=== PATIENT | female | born 1940 | race Caucasian/White ===

== ENCOUNTER 2020-09-03 19:59 | Inpatient (IN) | payer OTHER ==
[2020-09-03] MEDS ORDERED: LACTATED RINGERS SOLUTION 1000 ML INFUS.BAG IV ONE (20:32)
[2020-09-03 21:27] LABS: VENOUS BASE EXCESS -5.7 mmol/L (-2-2); VENOUS O2 SATURATION 30.2 % (70-80); VENOUS PCO2 33.5 mmHg (38-52); VENOUS PH 7.364 (7.310-7.410)
[2020-09-03 21:28] LABS: BASO % 0.3 % (0-2.0); HEMATOCRIT 39.2 % (32.4-45.2); HEMOGLOBIN 12.8 GM/dL (10.7-15.3); LYMPH % 4.5 % (8-40); MCH 27.9 pg (25.7-33.7); MCHC 32.7 g/dl (32.0-36.0); MEAN CELL VOLUME 85.2 fl (80-96); MEAN PLT VOLUME 9.7 fl (7.5-11.1); MONO % 4.4 % (3.8-10.2); NEUT % 90.8 % (42.8-82.8); PLATELET COUNT 376 K/MM3 (134-434); RDW 14.3 % (11.6-15.6); WHITE BLOOD COUNT 23.1 K/mm3 (4.0-10.0)
[2020-09-03 21:44] LABS: INR 1.14 (0.83-1.09); PROTHROMBIN TIME (PATIENT) 13.7 SEC (9.7-13.0)
[2020-09-03 21:47] LABS: ACTIVATED PTT 24.7 SECONDS (25.2-36.5)
[2020-09-03 21:49] LABS: POTASSIUM 4.3 mmol/L (3.5-5.1)
[2020-09-03 21:52] LABS: ALBUMIN 3.4 g/dl (3.4-5.0); BLOOD UREA NITROGEN 15.2 mg/dL (7-18); CALCIUM 9.9 mg/dL (8.5-10.1); MAGNESIUM 1.6 mg/dL (1.8-2.4)
[2020-09-03] MEDS ORDERED: MAGNESIUM SULF 50% (8.12 MEQ/2 ML-1 GM VIAL) IVPB ONE (21:52)
[2020-09-03 21:54] LABS: CREATININE 1.2 mg/dL (0.55-1.3)
[2020-09-03 21:57] LABS: BILIRUBIN,TOTAL 0.9 mg/dL (0.2-1); TOT PROT 7.5 g/dl (6.4-8.2)
[2020-09-03] MEDS ORDERED: CEFTRIAXONE 1 GM in DEXTROSE 5%-WATER - 100 ML IVPB ONE (22:41)
[2020-09-03] MEDS ORDERED: CEFTRIAXONE 1 GM/50 ML BAG ONE (22:47)
[2020-09-03] MEDS ORDERED: MAGNESIUM 1GM/D5W - 1 GM/100 ML IVPB IVPB ONE (22:48)
[2020-09-03 23:03] LABS: ANISOCYTOSIS 0; MACROCYTOSIS 0; PLATELET ESTIMATE NORMAL
[2020-09-03 23:38] LABS: URINE APPEARANCE Clear; URINE BILIRUBIN 1+ (NEGATIVE); URINE COLOR Yellow; URINE GLUCOSE (UA) Negative (NEGATIVE); URINE KETONE 2+ (NEGATIVE); URINE LEUK ESTERASE Negative (NEGATIVE); URINE NITRITE Negative (NEGATIVE); URINE PROTEIN 2+ (NEGATIVE); URINE UROBILINOGEN 0.2 mg/dL (0.2-1.0)
[2020-09-04] MEDS ORDERED: ASPIRIN 325 MG TABLET PO ONE (00:55)
[2020-09-04] MEDS ORDERED: LACTATED RINGERS SOLUTION 1000 ML INFUS.BAG IV ONE (01:06)
[2020-09-04] MEDS ORDERED: SODIUM CHLORIDE 1,000 ML IV SCH (02:00)
[2020-09-04] MEDS: INSULIN SLIDING SCALE (NOVOLOG) 1 VIAL SQ SCH ×4 (07:33→22:06)
[2020-09-04] MEDS ORDERED: ENOXAPARIN NA (PORCINE) 40 MG/0.4 ML DISP.SYRIN SQ ONE (08:58)
[2020-09-04] MEDS: ENOXAPARIN NA (PORCINE) 40 MG/0.4 ML DISP.SYRIN SQ SCH (09:02)
[2020-09-04 09:41] LABS: HEMATOCRIT 35.9 % (32.4-45.2); MCHC 33.4 g/dl (32.0-36.0); MEAN CELL VOLUME 83.6 fl (80-96); MEAN PLT VOLUME 9.6 fl (7.5-11.1); PLATELET COUNT 354 K/MM3 (134-434); RDW 14.3 % (11.6-15.6); WHITE BLOOD COUNT 18.9 K/mm3 (4.0-10.0)
[2020-09-04 10:07] LABS: BLOOD UREA NITROGEN 15.2 mg/dL (7-18); CALCIUM 9.3 mg/dL (8.5-10.1)
[2020-09-04 10:11] LABS: CREATININE 1.1 mg/dL (0.55-1.3)
[2020-09-04] MEDS ORDERED: CEFTRIAXONE 1 GM/50 ML BAG ONE (14:27)
[2020-09-04] MEDS: CEFTRIAXONE 1 GM in DEXTROSE 5%-WATER - 50 ML IVPB SCH (14:29)
[2020-09-04] MEDS: SODIUM CHLORIDE 0.45%/POT 20 MEQ/1,000 ML INFUS.BAG IV SCH (14:44)
[2020-09-05] MEDS: SODIUM CHLORIDE 0.45%/POT 20 MEQ/1,000 ML INFUS.BAG IV SCH ×2 (06:36→14:15)
[2020-09-05] MEDS: INSULIN SLIDING SCALE (NOVOLOG) 1 VIAL SQ SCH ×4 (06:49→22:00)
[2020-09-05 08:17] LABS: BASO % 0.4 % (0-2.0); EOS % 2.3 % (0-4.5); HEMATOCRIT 31.8 % (32.4-45.2); HEMOGLOBIN 10.9 GM/dL (10.7-15.3); LYMPH % 26.5 % (8-40); MCH 28.7 pg (25.7-33.7); MCHC 34.4 g/dl (32.0-36.0); MEAN CELL VOLUME 83.5 fl (80-96); MEAN PLT VOLUME 9.3 fl (7.5-11.1); MONO % 7.5 % (3.8-10.2); NEUT % 63.3 % (42.8-82.8); PLATELET COUNT 296 K/MM3 (134-434); RBC 3.81 M/mm3 (3.60-5.2); RDW 14.3 % (11.6-15.6); WHITE BLOOD COUNT 11.8 K/mm3 (4.0-10.0)
[2020-09-05 08:39] LABS: POTASSIUM 4.1 mmol/L (3.5-5.1)
[2020-09-05 08:47] LABS: BLOOD UREA NITROGEN 15.6 mg/dL (7-18); CALCIUM 8.8 mg/dL (8.5-10.1)
[2020-09-05 08:48] LABS: ALBUMIN 2.6 g/dl (3.4-5.0)
[2020-09-05 08:50] LABS: BILIRUBIN,TOTAL 0.6 mg/dL (0.2-1); TOT PROT 5.9 g/dl (6.4-8.2)
[2020-09-05] MEDS ORDERED: DEXTROSE 5%-WATER - 50 ML IVPB ONE (10:42)
[2020-09-05] MEDS ORDERED: cefTRIAXone SODIUM 1 GM VIAL ONE (10:42)
[2020-09-05] MEDS: CEFTRIAXONE 1 GM in DEXTROSE 5%-WATER - 50 ML IVPB SCH (10:44)
[2020-09-05] MEDS: ENOXAPARIN NA (PORCINE) 40 MG/0.4 ML DISP.SYRIN SQ SCH (10:44)
[2020-09-06] MEDS: INSULIN SLIDING SCALE (NOVOLOG) 1 VIAL SQ SCH ×5 (06:49→22:19)
[2020-09-06 08:52] LABS: BASO % 0.9 % (0-2.0); EOS % 1.8 % (0-4.5); HEMATOCRIT 30.6 % (32.4-45.2); HEMOGLOBIN 10.5 GM/dL (10.7-15.3); LYMPH % 17.8 % (8-40); MCH 28.9 pg (25.7-33.7); MCHC 34.4 g/dl (32.0-36.0); MEAN PLT VOLUME 9.9 fl (7.5-11.1); MONO % 9.1 % (3.8-10.2); NEUT % 70.4 % (42.8-82.8); PLATELET COUNT 252 K/MM3 (134-434); RBC 3.64 M/mm3 (3.60-5.2); RDW 14.2 % (11.6-15.6); WHITE BLOOD COUNT 10.8 K/mm3 (4.0-10.0)
[2020-09-06 09:03] LABS: POTASSIUM 4.1 mmol/L (3.5-5.1)
[2020-09-06 09:20] LABS: CALCIUM 8.8 mg/dL (8.5-10.1)
[2020-09-06 09:22] LABS: ALBUMIN 2.5 g/dl (3.4-5.0); BLOOD UREA NITROGEN 12.1 mg/dL (7-18)
[2020-09-06 09:24] LABS: CREATININE 0.8 mg/dL (0.55-1.3)
[2020-09-06 09:25] LABS: BILIRUBIN,TOTAL 0.7 mg/dL (0.2-1)
[2020-09-06 09:26] LABS: TOT PROT 5.8 g/dl (6.4-8.2)
[2020-09-06] MEDS ORDERED: DEXTROSE 5%-WATER - 50 ML IVPB ONE (09:32)
[2020-09-06] MEDS ORDERED: cefTRIAXone SODIUM 1 GM VIAL ONE (09:32)
[2020-09-06] MEDS: ENOXAPARIN NA (PORCINE) 40 MG/0.4 ML DISP.SYRIN SQ SCH (09:42)
[2020-09-06] MEDS: CEFTRIAXONE 1 GM in DEXTROSE 5%-WATER - 50 ML IVPB SCH (09:42)
[2020-09-06 14:02] VITALS: BMI 25.8
[2020-09-06] MEDS: SODIUM CHLORIDE 0.45%/POT 20 MEQ/1,000 ML INFUS.BAG IV SCH (14:15)
[2020-09-06 14:56] LABS: EPI CELLS 6 /uL (0-25.1); HYALINE CASTS 1 /uL (0-3.1); URINE APPEARANCE CLEAR; URINE BACTERIA 35 /uL (0-1359); URINE BILIRUBIN NEGATIVE (NEGATIVE); URINE COLOR YELLOW; URINE GLUCOSE (UA) NEGATIVE (NEGATIVE); URINE KETONE NEGATIVE (NEGATIVE); URINE LEUK ESTERASE TRACE (NEGATIVE); URINE NITRITE NEGATIVE (NEGATIVE); URINE PROTEIN NEGATIVE (NEGATIVE); URINE RBC 19 /uL (0-23.9); URINE UROBILINOGEN 0.2 mg/dL (0.2-1.0); URINE WBC 59 /uL (0-25.8)
[2020-09-06] MEDS: AMINO ACIDS/PROTEIN HYDROLYS 30 ML LIQUID.PKT PO SCH (17:02)
[2020-09-06 18:12] LABS: YEAST PRESENT (NEGATIVE)
[2020-09-07] MEDS: SODIUM CHLORIDE 0.45%/POT 20 MEQ/1,000 ML INFUS.BAG IV SCH (04:00)
[2020-09-07] MEDS: INSULIN SLIDING SCALE (NOVOLOG) 1 VIAL SQ SCH ×4 (06:11→23:02)
[2020-09-07 07:39] LABS: HEMOGLOBIN 11.5 GM/dL (10.7-15.3); MCH 28.3 pg (25.7-33.7); MCHC 33.7 g/dl (32.0-36.0); MEAN CELL VOLUME 83.9 fl (80-96); MEAN PLT VOLUME 9.4 fl (7.5-11.1); PLATELET COUNT 274 K/MM3 (134-434); RBC 4.05 M/mm3 (3.60-5.2); RDW 14.5 % (11.6-15.6); WHITE BLOOD COUNT 11.1 K/mm3 (4.0-10.0)
[2020-09-07 07:54] LABS: POTASSIUM 4.4 mmol/L (3.5-5.1)
[2020-09-07 07:56] LABS: CALCIUM 8.8 mg/dL (8.5-10.1)
[2020-09-07 07:57] LABS: ALBUMIN 2.3 g/dl (3.4-5.0); BLOOD UREA NITROGEN 12.7 mg/dL (7-18)
[2020-09-07 08:00] LABS: CREATININE 0.8 mg/dL (0.55-1.3)
[2020-09-07 08:01] LABS: BILIRUBIN,TOTAL 0.6 mg/dL (0.2-1); TOT PROT 5.7 g/dl (6.4-8.2)
[2020-09-07] MEDS ORDERED: DEXTROSE 5%-WATER - 50 ML IVPB ONE (09:46)
[2020-09-07] MEDS ORDERED: cefTRIAXone SODIUM 1 GM VIAL ONE (09:46)
[2020-09-07] MEDS: ENOXAPARIN NA (PORCINE) 40 MG/0.4 ML DISP.SYRIN SQ SCH (11:07)
[2020-09-07] MEDS: AMINO ACIDS/PROTEIN HYDROLYS 30 ML LIQUID.PKT PO SCH ×2 (11:08→17:36)
[2020-09-07] MEDS: CEFTRIAXONE 1 GM in DEXTROSE 5%-WATER - 50 ML IVPB SCH (11:08)
[2020-09-08] MEDS: INSULIN SLIDING SCALE (NOVOLOG) 1 VIAL SQ SCH ×4 (06:58→23:55)
[2020-09-08 08:28] LABS: HEMATOCRIT 33.8 % (32.4-45.2); HEMOGLOBIN 11.4 GM/dL (10.7-15.3); MCH 28.4 pg (25.7-33.7); MCHC 33.6 g/dl (32.0-36.0); MEAN CELL VOLUME 84.5 fl (80-96); MEAN PLT VOLUME 9.8 fl (7.5-11.1); PLATELET COUNT 298 K/MM3 (134-434); RDW 13.9 % (11.6-15.6); WHITE BLOOD COUNT 10.7 K/mm3 (4.0-10.0)
[2020-09-08] MEDS ORDERED: DEXTROSE 5%-WATER - 50 ML IVPB ONE (08:47)
[2020-09-08] MEDS ORDERED: cefTRIAXone SODIUM 1 GM VIAL ONE (08:47)
[2020-09-08 08:48] LABS: POTASSIUM 4.6 mmol/L (3.5-5.1)
[2020-09-08 08:51] LABS: ALBUMIN 2.3 g/dl (3.4-5.0); BLOOD UREA NITROGEN 14.7 mg/dL (7-18); CALCIUM 8.9 mg/dL (8.5-10.1)
[2020-09-08 08:54] LABS: CREATININE 0.8 mg/dL (0.55-1.3)
[2020-09-08 08:55] LABS: BILIRUBIN,TOTAL 0.4 mg/dL (0.2-1); TOT PROT 5.9 g/dl (6.4-8.2)
[2020-09-08] MEDS: ENOXAPARIN NA (PORCINE) 40 MG/0.4 ML DISP.SYRIN SQ SCH (09:47)
[2020-09-08] MEDS: AMINO ACIDS/PROTEIN HYDROLYS 30 ML LIQUID.PKT PO SCH ×2 (09:47→16:47)
[2020-09-08] MEDS: CEFTRIAXONE 1 GM in DEXTROSE 5%-WATER - 50 ML IVPB SCH (09:48)
[2020-09-08] MEDS: metFORMIN HCL 500 MG TABLET (FP) PO SCH (16:46)
[2020-09-09] MEDS: metFORMIN HCL 500 MG TABLET (FP) PO SCH (07:04)
[2020-09-09] MEDS: INSULIN SLIDING SCALE (NOVOLOG) 1 VIAL SQ SCH (07:04)
[2020-09-09 07:35] LABS: HEMATOCRIT 34.7 % (32.4-45.2); HEMOGLOBIN 11.7 GM/dL (10.7-15.3); MCH 28.2 pg (25.7-33.7); MCHC 33.6 g/dl (32.0-36.0); MEAN CELL VOLUME 83.8 fl (80-96); MEAN PLT VOLUME 9.2 fl (7.5-11.1); PLATELET COUNT 326 K/MM3 (134-434); RBC 4.14 M/mm3 (3.60-5.2); RDW 14.6 % (11.6-15.6); WHITE BLOOD COUNT 11.6 K/mm3 (4.0-10.0)
[2020-09-09 07:51] LABS: POTASSIUM 4.7 mmol/L (3.5-5.1)
[2020-09-09 08:06] LABS: CALCIUM 8.9 mg/dL (8.5-10.1)
[2020-09-09 08:07] LABS: ALBUMIN 2.3 g/dl (3.4-5.0); BLOOD UREA NITROGEN 18.2 mg/dL (7-18)
[2020-09-09 08:10] LABS: CREATININE 0.8 mg/dL (0.55-1.3)
[2020-09-09 08:11] LABS: BILIRUBIN,TOTAL 0.6 mg/dL (0.2-1)
[2020-09-09] MEDS: ENOXAPARIN NA (PORCINE) 40 MG/0.4 ML DISP.SYRIN SQ SCH (10:34)
[2020-09-09] MEDS: AMINO ACIDS/PROTEIN HYDROLYS 30 ML LIQUID.PKT PO SCH (10:34)
[2020-09-09 11:36] VITALS: BP 110/62; PULSE 99; TEMP 97.9
== END 2020-09-09 12:11 | DRG 558 ==
LOC: JER 19:59 → JERBED 09-04 00:55 → J4W 09-04 20:22
PROVIDERS: ADMIT Hospitalist; ATTEND Family Medicine
DX: M62.82 Rhabdomyolysis (principal); E87.2 Acidosis; I24.8 Other forms of acute ischemic heart disease; D72.829 Elevated white blood cell count, unspecified; R25.1 Tremor, unspecified; E11.9 Type 2 diabetes mellitus without complications; S40.011A Contusion of right shoulder, initial encounter; S70.02XA Contusion of left hip, initial encounter; I10 Essential (primary) hypertension; E78.5 Hyperlipidemia, unspecified; G20 Parkinson's disease; W19.XXXA Unspecified fall, initial encounter; Y93.9 Activity, unspecified; Y92.89 Other specified places as the place of occurrence of the external cause; Y99.8 Other external cause status
CPT/HCPCS: 36415; 70450-TC; 71045-TC-FY; 72100-TC-FY; 72125-TC; 73030-TC-LT-FY; 73030-TC-RT-FY; 73070-TC-RT-FY; 73523-TC-FY; 80048; 80053; 81003; 82465; 82550; 82553; 82607; 82803; 82962; 83036; 83605; 83735; 84443; 84484; 85025; 85027; 85610; 85730; 86850; 86900; 86901; 87040; 87086; 93005; 93010; 93306-TC; 97116-GP; 97161-GP; 99285-25; C9803; J3480; U0003

== ENCOUNTER 2022-07-25 14:51 | Inpatient (IN) | payer OTHER, MEDICARE ==
[2022-07-25 17:09] LABS: BASO % 0.7 % (0-2.0); EOS % 2.5 % (0-4.5); HEMATOCRIT 35.8 % (32.4-45.2); HEMOGLOBIN 11.7 GM/dL (10.7-15.3); LYMPH % 13.8 % (8-40); MCH 28.4 pg (25.7-33.7); MCHC 32.6 g/dl (32.0-36.0); MEAN CELL VOLUME 86.9 fl (80-96); MEAN PLT VOLUME 9.9 fl (7.5-11.1); MONO % 6.4 % (3.8-10.2); NEUT % 76.6 % (42.8-82.8); PLATELET COUNT 324 10^3/uL (134-434); RBC 4.11 M/mm3 (3.60-5.2); RDW 13.4 % (11.6-15.6); WHITE BLOOD COUNT 12.2 K/mm3 (4.0-10.0)
[2022-07-25 17:37] LABS: CALCIUM 9.2 mg/dL (8.5-10.1)
[2022-07-25 17:38] LABS: ALBUMIN 3.2 g/dl (3.4-5.0); BLOOD UREA NITROGEN 27.5 mg/dL (7-18)
[2022-07-25 17:41] LABS: CREATININE 1.3 mg/dL (0.55-1.3)
[2022-07-25 17:43] LABS: BILIRUBIN,TOTAL 0.5 mg/dL (0.2-1); TOT PROT 6.9 g/dl (6.4-8.2)
[2022-07-25] MEDS ORDERED: CARBIDOPA/LEVODOPA 25/100 TABLET (FP) ONE (21:31)
[2022-07-26] MEDS ORDERED: CARBIDOPA/LEVODOPA 25/100 TABLET (FP) ONE (07:12)
[2022-07-26 08:54] LABS: BASO % 0.3 % (0-2.0); EOS % 0.9 % (0-4.5); HEMOGLOBIN 12.4 GM/dL (10.7-15.3); LYMPH % 18.5 % (8-40); MCH 28.9 pg (25.7-33.7); MCHC 33.5 g/dl (32.0-36.0); MEAN CELL VOLUME 86.3 fl (80-96); MONO % 8.2 % (3.8-10.2); NEUT % 72.1 % (42.8-82.8); PLATELET COUNT 346 10^3/uL (134-434); RBC 4.29 M/mm3 (3.60-5.2); RDW 13.4 % (11.6-15.6); WHITE BLOOD COUNT 9.8 K/mm3 (4.0-10.0)
[2022-07-26 09:14] LABS: CALCIUM 9.7 mg/dL (8.5-10.1)
[2022-07-26 09:15] LABS: ALBUMIN 3.4 g/dl (3.4-5.0); BLOOD UREA NITROGEN 27.3 mg/dL (7-18)
[2022-07-26 09:17] LABS: CREATININE 1.1 mg/dL (0.55-1.3)
[2022-07-26 09:19] LABS: TOT PROT 7.4 g/dl (6.4-8.2)
[2022-07-26 09:22] LABS: BILIRUBIN,TOTAL 0.5 mg/dL (0.2-1)
[2022-07-26] MEDS ORDERED: VALSARTAN 80 MG TABLET ONE (13:10)
[2022-07-26] MEDS: metFORMIN HCL 500 MG TABLET (FP) PO SCH ×2 (13:13→16:13)
[2022-07-26] MEDS: VALSARTAN 80 MG TABLET PO SCH (13:13)
[2022-07-26] MEDS: INSULIN SLIDING SCALE (NOVOLOG) 1 VIAL SQ SCH ×2 (16:55→22:02)
[2022-07-27] MEDS: metFORMIN HCL 500 MG TABLET (FP) PO SCH ×2 (06:38→16:39)
[2022-07-27] MEDS: INSULIN SLIDING SCALE (NOVOLOG) 1 VIAL SQ SCH ×4 (06:38→21:49)
[2022-07-27 11:24] LABS: EPI CELLS >36 /uL (0-25.1); HYALINE CASTS 2 /uL (0-3.1); PH,URINE 5.5 (5.0-8.0); URINE APPEARANCE TURBID; URINE BACTERIA >9,000 /uL (0-1359); URINE BILIRUBIN NEGATIVE (NEGATIVE); URINE COLOR YELLOW; URINE GLUCOSE (UA) NEGATIVE (NEGATIVE); URINE KETONE TRACE (NEGATIVE); URINE LEUK ESTERASE 3+ (NEGATIVE); URINE NITRITE NEGATIVE (NEGATIVE); URINE PROTEIN 1+ (NEGATIVE); URINE WBC 7097 /uL (0-25.8)
[2022-07-27 11:27] LABS: URINE RBC 117.4 /uL (0-23.9); YEAST NEGATIVE (NEGATIVE)
[2022-07-27] MEDS: VALSARTAN 80 MG TABLET PO SCH (11:30)
[2022-07-27] MEDS: MUPIROCIN 2% TOPICAL OINTMENT FOR DECOLONIZATION NS SCH (21:48)
[2022-07-27] MEDS ORDERED: CHLORHEXIDINE GLUCONATE 4% CLEANSER FOR DECOLONIZATION TP SCH (22:00)
[2022-07-28] MEDS: INSULIN SLIDING SCALE (NOVOLOG) 1 VIAL SQ SCH ×4 (06:05→21:40)
[2022-07-28] MEDS: metFORMIN HCL 500 MG TABLET (FP) PO SCH ×2 (06:31→16:35)
[2022-07-28 06:38] LABS: EPI CELLS 22 /uL (0-25.1); HYALINE CASTS 4 /uL (0-3.1); URINE APPEARANCE TURBID; URINE BACTERIA >9,000 /uL (0-1359); URINE BILIRUBIN 1+ (NEGATIVE); URINE COLOR DK YELLOW; URINE GLUCOSE (UA) NEGATIVE (NEGATIVE); URINE KETONE 1+ (NEGATIVE); URINE LEUK ESTERASE 3+ (NEGATIVE); URINE NITRITE POSITIVE (NEGATIVE); URINE PROTEIN 1+ (NEGATIVE); URINE WBC 4131 /uL (0-25.8)
[2022-07-28 09:24] LABS: HEMATOCRIT 35.9 % (32.4-45.2); HEMOGLOBIN 11.8 GM/dL (10.7-15.3); MCH 28.4 pg (25.7-33.7); MCHC 32.9 g/dl (32.0-36.0); MEAN CELL VOLUME 86.4 fl (80-96); MEAN PLT VOLUME 9.3 fl (7.5-11.1); PLATELET COUNT 323 10^3/uL (134-434); RBC 4.16 M/mm3 (3.60-5.2); RDW 13.7 % (11.6-15.6)
[2022-07-28 09:57] LABS: CALCIUM 9.5 mg/dL (8.5-10.1)
[2022-07-28 09:58] LABS: ALBUMIN 3.2 g/dl (3.4-5.0); MAGNESIUM 2.1 mg/dL (1.8-2.4)
[2022-07-28 10:01] LABS: CREATININE 1.8 mg/dL (0.55-1.3)
[2022-07-28 10:02] LABS: BILIRUBIN,TOTAL 0.8 mg/dL (0.2-1); TOT PROT 6.8 g/dl (6.4-8.2)
[2022-07-28] MEDS: VALSARTAN 80 MG TABLET PO SCH (10:11)
[2022-07-28] MEDS: MUPIROCIN 2% TOPICAL OINTMENT FOR DECOLONIZATION NS SCH (10:12)
[2022-07-28 10:28] LABS: BLOOD UREA NITROGEN 53.1 mg/dL (7-18)
[2022-07-28] MEDS ORDERED: CEFTRIAXONE 1 GM in DEXTROSE 5%-WATER - 50 ML IVPB SCH (11:45)
[2022-07-28 12:06] LABS: URINE RBC 96.1 /uL (0-23.9)
[2022-07-28 12:09] LABS: YEAST NONE SEEN (NEGATIVE)
[2022-07-28] MEDS ORDERED: SODIUM CHLORIDE 0.45% 1,000 ML IV SCH ×2 (12:30→17:24)
[2022-07-28] MEDS ORDERED: LIDOCAINE HCL 1%, 10 MG/ML (20ML VIAL) ONE (14:46)
[2022-07-28] MEDS ORDERED: ceFAZolin SODIUM 1 GM VIAL ONE (14:46)
[2022-07-28] MEDS ORDERED: BUPIVACAINE HCL/PF 0.5% (5MG/ML) 10 ML VIAL ONE (14:47)
[2022-07-28] MEDS ORDERED: MIDAZOLAM HCL 2 MG/2 ML SINGLE DOSE VIAL ONE (15:41)
[2022-07-28] MEDS ORDERED: PROPOFOL 20 ML ONE (15:45)
[2022-07-28] MEDS ORDERED: VANCOMYCIN 1 GM in NS (PRE-DOCKED) 1,000 MG/250 ML IVPB ONE (15:54)
[2022-07-28] MEDS ORDERED: VANCOMYCIN 1,000 MG VIAL (RESTRICTED TO ID ONLY) ONE (15:58)
[2022-07-28] MEDS ORDERED: LIDOCAINE HCL 1%, 10 MG/ML (20ML VIAL) NR ONE ×2 (16:31)
[2022-07-28] MEDS ORDERED: BUPIVACAINE HCL/PF 0.5% (5MG/ML) 10 ML VIAL IJ ONE ×2 (16:32)
[2022-07-28] MEDS ORDERED: ceFAZolin SODIUM 1 GM VIAL IVPB ONE (16:33)
[2022-07-28] MEDS ORDERED: LACTATED RINGERS SOLUTION 1,000 ML IV SCH (17:15)
[2022-07-28] MEDS ORDERED: hydrALAZINE HCL 20 MG/ML VIAL ONE (18:02)
[2022-07-28] MEDS ORDERED: SODIUM CHLORIDE 250 ML IV STA (19:57)
[2022-07-28] MEDS ORDERED: MUPIROCIN 2% TOPICAL OINTMENT FOR DECOLONIZATION NS SCH (22:00)
[2022-07-28] MEDS ORDERED: CHLORHEXIDINE GLUCONATE 4% CLEANSER FOR DECOLONIZATION TP SCH (22:00)
[2022-07-29] MEDS: INSULIN SLIDING SCALE (NOVOLOG) 1 VIAL SQ SCH ×4 (06:33→21:28)
[2022-07-29 08:50] LABS: BASO % 0.6 % (0-2.0); EOS % 1.3 % (0-4.5); HEMATOCRIT 35.8 % (32.4-45.2); HEMOGLOBIN 11.8 GM/dL (10.7-15.3); LYMPH % 14.8 % (8-40); MCH 28.4 pg (25.7-33.7); MCHC 32.9 g/dl (32.0-36.0); MEAN CELL VOLUME 86.3 fl (80-96); MEAN PLT VOLUME 9.5 fl (7.5-11.1); MONO % 9.2 % (3.8-10.2); NEUT % 74.1 % (42.8-82.8); PLATELET COUNT 294 10^3/uL (134-434); RBC 4.14 M/mm3 (3.60-5.2); RDW 13.3 % (11.6-15.6); WHITE BLOOD COUNT 11.8 K/mm3 (4.0-10.0)
[2022-07-29 09:17] LABS: CALCIUM 8.9 mg/dL (8.5-10.1)
[2022-07-29 09:18] LABS: BLOOD UREA NITROGEN 40.5 mg/dL (7-18)
[2022-07-29 09:21] LABS: CREATININE 1.2 mg/dL (0.55-1.3)
[2022-07-29 09:22] LABS: BILIRUBIN,TOTAL 0.8 mg/dL (0.2-1); TOT PROT 6.4 g/dl (6.4-8.2)
[2022-07-29] MEDS: CYANOCOBALAMIN 1,000 MCG TABLET (FP) PO SCH (09:56)
[2022-07-29] MEDS: VALSARTAN 80 MG TABLET PO SCH (09:56)
[2022-07-29] MEDS: metFORMIN HCL 500 MG TABLET (FP) PO SCH ×2 (09:57→17:02)
[2022-07-29] MEDS: CEFTRIAXONE 1 GM in DEXTROSE 5%-WATER - 50 ML IVPB SCH (09:58)
[2022-07-29] MEDS ORDERED: SODIUM CHLORIDE 0.45% 1,000 ML IV SCH (13:00)
[2022-07-30] MEDS: metFORMIN HCL 500 MG TABLET (FP) PO SCH ×2 (06:11→16:56)
[2022-07-30] MEDS: INSULIN SLIDING SCALE (NOVOLOG) 1 VIAL SQ SCH ×3 (06:11→16:54)
[2022-07-30] MEDS: VALSARTAN 80 MG TABLET PO SCH (09:24)
[2022-07-30] MEDS: CYANOCOBALAMIN 1,000 MCG TABLET (FP) PO SCH (09:24)
[2022-07-30] MEDS: CEFTRIAXONE 1 GM in DEXTROSE 5%-WATER - 50 ML IVPB SCH (09:24)
[2022-07-30 11:58] VITALS: RESP 16; TEMP 97.9
[2022-07-30 13:50] VITALS: BP 137/84
[2022-07-30 14:09] VITALS: PULSE 93
== END 2022-07-30 17:59 | disposition home health service (06) | DRG 243 ==
LOC: JER 14:51 → JERBED 16:36 → J6W 07-26 14:04 → INTOOBSV 07-28 09:13 → OBSVTOIN 07-28 09:13 → UNDODISIN 07-28 20:30
PROVIDERS: ADMIT Internal Medicine; ATTEND Family Medicine
PROC: 02H70JZ Insertion of Pacemaker Lead into Left Atrium, Open Approach (ICD-10-PCS; 2022-07-28)
PROC: 0JH606Z Insertion of Pacemaker, Dual Chamber into Chest Subcutaneous Tissue and Fascia, Open Approach (ICD-10-PCS; principal; 2022-07-28 15:00)
DX: R00.1 Bradycardia, unspecified (principal); N17.9 Acute kidney failure, unspecified; N39.0 Urinary tract infection, site not specified; R55 Syncope and collapse; I10 Essential (primary) hypertension; E78.5 Hyperlipidemia, unspecified; E11.9 Type 2 diabetes mellitus without complications; D72.829 Elevated white blood cell count, unspecified; G20 Parkinson's disease; B96.1 Klebsiella pneumoniae [K. pneumoniae] as the cause of diseases classified elsewhere; I95.9 Hypotension, unspecified
CPT/HCPCS: 0241U-QW; 36415; 70450-TC; 71045-TC-FY; 76000-TC-FY; 76775-TC; 80053; 81003; 82607; 82962; 83735; 84443; 84484; 85025; 85027; 86780; 87040; 87086; 87186; 93005; 93010; 93306-TC; 93880-TC; 94760; 97116-GP; 97162-GP; 99285-25; C1785; G0378